=== PATIENT | male | born 1950 | race Asian ===

== ENCOUNTER 2016-08-22 17:06 | Emergency (ER) | payer SELFPAY ==
[~2016-08-22] VITALS: Ht 180.3 cm; Wt 83.2 kg
[2016-08-22 18:46] LABS: HEMATOCRIT 42.2 % (38.0-50.0); MCH 32.9 PG (29.0-34.0); MCHC 33.9 G/DL (30.0-36.0); MEAN PLAT.VOLUME 9.3 uM^3 (9.0-12.4); PLATELET COUNT 212 K/uL (156-360); RBC DIS.WIDTH-CV 12.5 % (11.8-14.6); RED BLOOD COUNT 4.35 M/uL (4.00-5.50); WHITE BLOOD COUNT 6.5 K/uL (4.1-10.2)
[2016-08-22 19:03] LABS: CHLORIDE 105 mEq/L (99-109); POTASSIUM 5.2 mEq/L (3.7-5.4); SODIUM 139 mEq/L (136-147)
[2016-08-22 19:05] LABS: GLUCOSE 136 mg/dL (70-99)
[2016-08-22 19:06] LABS: ANION GAP 7 MEQ/L (2-14)
[2016-08-22 19:07] LABS: TROP-I INTERPRETATION NEGATIVE; TROPONIN-I < 0.01 ng/mL (0.0-0.30)
[2016-08-22 19:09] LABS: UREA NITROGEN (BUN) 28 mg/dL (9-23)
[2016-08-22 19:13] LABS: GFR ESTIMATE (CALCULATED) 46 mL/min/
[2016-08-23 02:15] LABS: TROP-I INTERPRETATION NEGATIVE; TROPONIN-I < 0.01 ng/mL (0.0-0.30)
[2016-08-23 10:13] LABS: D-DIMER ELISA 0.48 mg/L FEU (< 0.57)
[2016-08-23] MEDS ORDERED: ZESTRIL5 MG PO (10:54)
[2016-08-23] MEDS ORDERED: LIPITOR20 MG PO (10:54)
[2016-08-23] MEDS ORDERED: LO-DOSE ASPIRIN81 M2 PO (10:54)
[2016-08-23] MEDS ORDERED: OMEGA 3 500 SO1 EACH PO (10:55)
[2016-08-23 11:40] LABS: TROP-I INTERPRETATION NEGATIVE; TROPONIN-I < 0.01 ng/mL (0.0-0.30)
[2016-08-23 12:31] VITALS: BP 113/62
== END 2016-08-23 12:36 | disposition home or self-care (01) ==
LOC: EME 17:06
PROVIDERS: Emergency Medicine; Personal Emergency Response Attendant
DX: R07.9 Chest pain, unspecified (principal); R61 Generalized hyperhidrosis; I10 Essential (primary) hypertension; E78.5 Hyperlipidemia, unspecified; Z79.82 Long term (current) use of aspirin; F17.200 Nicotine dependence, unspecified, uncomplicated
CPT/HCPCS: 71020; 80048; 84484; 85027; 85379; 93005; 94640; 99281; 99285; J2930